=== PATIENT | male | born 1965 | race Caucasian/White ===

== ENCOUNTER 2016-07-01 12:30 | Emergency (ER) | payer SELFPAY ==
[~2016-07-01] VITALS: Ht 170.2 cm; Wt 73.7 kg
[2016-07-01 12:44] VITALS: BP 134/92; PULSE 90; RESP 16; TEMP 98.3; O2SAT 97
--- NOTE | 2016-07-01 12:54 | PD ---
HPI Chief Complaint: ENT Complaint Time Seen by Provider: 12:52 Travel History International Travel<30 days: No Contact w/Intl Traveler<30days: No Traveled to known affect area: No History of Present Illness HPI Patient comes in complaining of right ear pain ongoing for 3 days. Patient states he was fighting a respiratory infection for about 2 weeks when he coughed and sneezed at the same time when he felt as throbbing pain in his right ear. Patient feels there is water behind his ear. Patient tried putting warm water in his right ear with no improvement of symptoms. Patient has been taking Advil for pain. Pain is worse with lying flat. Sitting up improves the pain. Denies any known fevers, nausea, vomiting, chest pain, or shortness of breath. PFSH Past Medical History Medical History: Denies Significant Hx Social History Tobacco Use: No Substance Use: No Allergies-Medications (Allergen,Severity, Reaction): Coded Allergies: No Known Allergies (Unverified , 07/01/16) Reported Meds & Prescriptions Reported Meds & Active Scripts Active Amoxicillin 875 Mg Tab 875 Mg PO BID 10 Days Review of Systems Except as stated in HPI: all other systems reviewed are Neg Physical Exam Narrative GENERAL: Well-developed, overly nourished, in no acute distress, and non-ill appearing. SKIN: Focused skin assessment warm and dry. HEAD: Atraumatic. Normocephalic. EYES: Pupils equal and round. EOMI. No scleral icterus. No injection or drainage. ENT: No nasal bleeding or discharge. Mucous membranes pink and moist. Left tympanic membrane pearly alegre. Right tympanic membrane obscured by cerumen. No tenderness with tugging of the tragus or auricle. NECK: Trachea midline. No cervical lymphadenopathy. Supple. No nuclear rigidity. RESPIRATORY: No accessory muscle use. No respiratory distress. MUSCULOSKELETAL: No obvious deformities. No clubbing. No cyanosis. No edema. Full range of motion. NEUROLOGICAL: Awake and alert. No obvious cranial nerve deficits. Motor grossly within normal limits. Normal speech. PSYCHIATRIC: Appropriate mood and affect; insight and judgment normal. Data Data Last Documented VS Vital Signs Date Time Temp Pulse Resp B/P Pulse Ox O2 Delivery O2 Flow Rate FiO2 07/01/16 12:44 98.3 90 16 134/92 97 Orders Ear Irrigation (07/01/16 12:51) [facility] Medical Decision Making Medical Screen Exam Complete: Yes Emergency Medical Condition: Yes Differential Diagnosis Otitis media, otitis externa, ruptured tympanic membrane, other Narrative Course Reevaluation of right tympanic membrane status post ear irrigations shows a erythematous and bulging on the right with air bubbles. Patient looks great, non-ill appearing. The patient is tolerating fluids and is well hydrated. Appears simple otitis media. No clinical evidence by history or evaluation to suspect meningitis and/or sepsis, nor malignant OE or mastoiditis. I discussed with the patient, diagnosis, plan of care and to follow up with the patients primary physician within the next week. The patient was instructed to return if worsens in anyway, especially if increased pain, persistent fever, worsening headache neck pain or as needed. The patient agreed with plan. Patient in no obvious distress upon re-evaluation. Patient was asked if they wanted to speak to my attending, which the patient did not wish to do at this time. Any questions/concerns in reference to patient diagnosis/condition discussed and clarified prior to patient's discharge. Reinforced sheer importance of close follow up with patient's primary physician or primary care clinic. Instructed patient to return to ED immediately, if symptoms return/ worsen. Pt showed understanding of above instructions. Further instructions and recommendations were detailed in discharge paperwork. Pt ambulated without difficulty out of ED at discharge. Diagnosis Primary Impression: Right acute otitis media Patient Instructions: General Instructions, Otitis Media (ED) Additional Instructions: Follow-up with your primary care physician and/or ENT next week for reevaluation. Take all medication as prescribed. Use [id number] Tylenol and/or ibuprofen as needed for pain and/or fever control. Return to the emergency department if symptoms get worse. Med/Other Pt SpecificInfo: Prescription(s) given Scripts Amoxicillin 875 Mg Isd580 Mg PO BID 10 Days Ref 0 Prov:Toni Dutta MD 07/01/16 Disposition: 01 DISCHARGE HOME Condition: Stable Lucas Hodgson Jul 01, 2016 12:54
[2016-07-01] MEDS ORDERED: AMOX875T PO (13:28)
== END 2016-07-01 13:52 | disposition home or self-care (01) ==
LOC: PHEFT 12:30
DX: H66.91 Otitis media, unspecified, right ear (principal)
CPT/HCPCS: 99282